=== PATIENT | male | born 1960 | race Asian ===

== ENCOUNTER 2022-05-08 18:38 | Outpatient (CLI) | payer OTHER ==
--- NOTE | 2022-05-08 16:58 | XRAY Report ---
PROCEDURE: Shoulder 3 View RT INDICATIONS: PAIN IN RIGHT SHOULDER TECHNIQUE: 3 views of the shoulder were acquired. COMPARISON: None. FINDINGS: Bones: No fractures or dislocations. No suspicious bony lesions. Visualized ribs appear intact. P eriarticular osteophyte formation at the, clavicular and glenohumeral joints. Soft tissues: Calcification projects over the rotator cuff. IMPRESSION: 1. Osteoarthritis. 2. Calcific tendinitis of the rotator cuff. 3. No acute fracture. No osseous lesion. If symptoms and/or clinical suspicion for pathology continue , further assessment with repeat plain films, or advanced imaging (e.g., CT, MRI, or bone scan) is re commended for further assessment. Reviewed by: Jose Manuel Quevedo MD on 05/08/2022 4:56 PM [facility] Approved by: Jose Manuel Quevedo MD on 05/08/2022 4:56 PM [facility] Station ID: [id number]
== END 2022-05-08 18:39 | disposition home or self-care (01) ==
LOC: DI.S 18:38
PROVIDERS: ATTEND Registered Nurse
DX: M19.011 Primary osteoarthritis, right shoulder (principal); M75.31 Calcific tendinitis of right shoulder